=== PATIENT | female | born 1965 | race Hispanic/Latino ===

== ENCOUNTER → 2021-10-31 | Outpatient (CLI) | payer OTHER | END | disposition home or self-care (01) | LOC: RAH 16:06 | PROVIDERS: ATTEND Family Medicine | DX: Z02.71 Encounter for disability determination (principal); M47.816 Spondylosis without myelopathy or radiculopathy, lumbar region; M17.0 Bilateral primary osteoarthritis of knee | CPT/HCPCS: 71046; 72100; 73521 ==

== ENCOUNTER 2024-01-29 07:21 | Observation (INO) | payer MEDICARE ==
[2024-01-25 13:26] LABS: BASOPHILS # (AUTO) 0.05 K/uL (0.00-0.20); BASOPHILS % (AUTO) 0.5 % (0.0-5.0); EOSINOPHILS # (AUTO) 0.19 K/uL (0.00-0.70); EOSINOPHILS % (AUTO) 1.9 % (0.0-8.0); HEMATOCRIT 44.1 % (36-48); IMMATURE GRANULOCYTE ABSOLUTE 0.03 K/uL (0-1); LYMPHOCYTES # (AUTO) 2.7 K/uL (1.0-4.8); LYMPHOCYTES % (AUTO) 27.3 % (21.0-51.0); MEAN CORPUSCULAR HEMOGLOBIN 29.1 pg (27.0-33.0); MEAN CORPUSCULAR HGB CONC 32.9 g/dL (32.0-36.0); MEAN CORPUSCULAR VOLUME 88.4 fL (79-99); MONOCYTES # (AUTO) 0.5 K/uL (0.1-1.0); MONOCYTES % (AUTO) 5.2 % (3.0-13.0); NEUTROPHILS # (AUTO) 6.4 K/uL (1.8-7.7); NEUTROPHILS % (AUTO) 64.8 % (40.0-77.0); PLATELET COUNT (AUTO) 231 K/uL (130-400); RED BLOOD CELL COUNT(AUTO) 4.99 MIL/uL (4.00-5.50); RED CELL DISTRIBUTION WIDTH 13.4 % (11.0-15.5); WHITE BLOOD COUNT (AUTO) 9.9 K/uL (4.8-10.8)
[2024-01-25 13:37] LABS: INR 1.09 (0.85-1.15); PROTHROMBIN TIME 11.7 SEC (9.6-11.6)
[2024-01-25 13:39] LABS: PARTIAL THROMBOPLASTIN TIME 28.3 SEC (26.3-35.5)
[2024-01-25 13:41] LABS: ADD UA MICROSCOPIC YES; APPEARANCE,URINE CLOUDY (CLEAR); BILIRUBIN,URINE NEGATIVE (NEGATIVE); COLOR,URINE YELLOW (YELLOW); GLUCOSE, URINE (UA) NEGATIVE (NEGATIVE); KETONES,URINE 5 mg/dL (NEGATIVE); LEUKOCYTE ESTERASE ,URINE 75 Leu/uL (NEGATIVE); NITRATE,URINE NEGATIVE (NEGATIVE); OCCULT BLOOD,URINE NEGATIVE (NEGATIVE); PROTEIN,URINE 30 mg/dL (NEGATIVE)
[2024-01-25 13:46] LABS: BACTERIA,URINE FEW /HPF (None Seen); MUCUS,URINE MANY LPF (None Seen); SQUAMOUS EPITHELIAL CELL,UR FEW /HPF (0-2)
[2024-01-25 14:04] VITALS: BP 133/91; PULSE 81; RESP 16; TEMP 97.8
[2024-01-29] VITALS (26 sets, daily range): BP systolic 97–147; BP diastolic 41–83; PULSE 71–93; RESP 13–24; TEMP 97.3–98.8; O2SAT 97
[~2024-01-29] VITALS: Ht 152.4 cm; Wt 103.8 kg
[~2024-01-29 07:21] MED LIST: AMLO-258 PO; LISI20TA24 PO; NAPR-1023 PO; OMEP40CA21 PO; ROSU20TA98 PO; TIRZ2.5P SQ
[2024-01-29] MEDS: 0.9%NACL 1000ML 1,000 ML IV ONE (07:32)
[2024-01-29] MEDS: ceFAZolin SODIUM 2 GM VIAL ONE (07:32)
[2024-01-29] MEDS ORDERED: ceFAZolin SODIUM 1 GM VIAL ONE (08:36)
[2024-01-29] MEDS ORDERED: morPHINE PF 100MG/10ML AMP IV ONE (08:36)
[2024-01-29] MEDS ORDERED: TRANEXAMIC ACID 1000MG/10ML ONE (08:36)
[2024-01-29] MEDS ORDERED: proPOFol 10 MG/ML 20ML VIAL IV ONE (08:55)
[2024-01-29] MEDS ORDERED: SUCCINYLCHOLINE CHLORIDE 20 MG/ML 10 ML VIAL ONE (08:55)
[2024-01-29] MEDS ORDERED: rocuRONium bROMide 10MG/1ML 5ML VL ONE ×2 (08:56→10:36)
[2024-01-29] MEDS ORDERED: FENTanyl CITRate PF 50 MCG/1 ML 2ML VIAL ONE (08:56)
[2024-01-29] MEDS ORDERED: MIDAZOLAM HCL 1 MG/ML 2ML VIAL ONE (08:56)
[2024-01-29] MEDS: TRANEXAMIC ACID 1000MG/10ML IV ONE (09:45)
[2024-01-29] MEDS: VANCOMYCIN 500MG VIAL IJ ONE (11:50)
[2024-01-29] MEDS ORDERED: OXYcodONE HCL 5 MG TAB PO PRN (12:30)
[2024-01-29] MEDS ORDERED: DiphenhydrAMINE HCL 50 MG/ML VIAL IVP PRN (12:30)
[2024-01-29] MEDS ORDERED: FERROUS FUMARATE 324 MG TABLET PO PRN (12:30)
[2024-01-29] MEDS ORDERED: TEMAZepam 15 MG CAPSULE PO PRN (12:30)
[2024-01-29] MEDS ORDERED: CALCIUM CARB 500MG PO PRN (12:30)
[2024-01-29] MEDS ORDERED: PoTASSium chloRIDE 20MEQ ER 20 MEQ ERTAB PO PRN (12:30)
[2024-01-29] MEDS ORDERED: PoTASSium chloRIDE 20MEQ/100ML 100 ML IV PRN (12:30)
[2024-01-29] MEDS ORDERED: PoTASSium chl 10% ELIXIR 20MEQ 20 MEQ/15 ML UDCUP PO PRN (12:30)
[2024-01-29] MEDS ORDERED: ondanSETRON 4MG INJ IVP PRN (12:30)
[2024-01-29] MEDS ORDERED: NEOSTIGMINE METHYLSULFATE 1MG/ML IV ONE (12:42)
[2024-01-29] MEDS ORDERED: MEPERIDINE-PF 25 MG/ML SYG ONE (12:51)
[2024-01-29] MEDS: IpraTROPium/alBUTERol SULFATE 3 ML SOLUTION IH ONE ×2 (13:26→13:34)
[2024-01-29] MEDS: MEPERIDINE-PF 25 MG/ML SYG ONE ×2 (13:29→13:30)
[2024-01-29] MEDS: MIDAZOLAM HCL 1 MG/ML 2ML VIAL ONE (13:30)
[2024-01-29] MEDS: SUGAMMADEX SODIUM 200 MG/2 ML VIAL IV ONE (13:30)
[2024-01-29] MEDS: ketOROlac 15MG/ML VIAL (15MG/ML) IV PRN (14:10)
[2024-01-29] MEDS: OXYcodONE HCL 5 MG TAB PO PRN (14:48)
[2024-01-29] MEDS: INSULIN humuLIN R 100 UNIT/ML 3ML SQ SCH (16:30)
[2024-01-29] MEDS: ceFAZolin SODIUM 2 GM VIAL IVPB SCH (18:30)
[2024-01-29] MEDS: 0.9%NACL 1000ML 1,000 ML IV SCH (18:31)
[2024-01-29] MEDS: ASPIRIN 81 MG EC TAB PO SCH (20:02)
[2024-01-29] MEDS: FAMOTIDINE 20MG TAB PO SCH (20:03)
[2024-01-29] MEDS: CeleCOXib 200 MG CAP PO SCH (20:03)
[2024-01-30] VITALS (8 sets, daily range): BP systolic 113–161; BP diastolic 54–82; PULSE 62–95; RESP 18–24; TEMP 98–99.4; O2SAT 96–97
[2024-01-30 05:05] LABS: HEMATOCRIT 35.1 % (36-48); MEAN CORPUSCULAR HEMOGLOBIN 28.6 pg (27.0-33.0); MEAN CORPUSCULAR HGB CONC 32.2 g/dL (32.0-36.0); MEAN CORPUSCULAR VOLUME 88.9 fL (79-99); RED BLOOD CELL COUNT(AUTO) 3.95 MIL/uL (4.00-5.50); RED CELL DISTRIBUTION WIDTH 13.4 % (11.0-15.5); WHITE BLOOD COUNT (AUTO) 7.1 K/uL (4.8-10.8)
[2024-01-30 05:10] LABS: CREATININE 0.8 mg/dL (0.5-1.0); POTASSIUM 4.4 mmol/L (3.5-5.1)
[2024-01-30] MEDS: Rosuvastatin Calcium 20 MG PO SCH (09:00)
[2024-01-30] MEDS: amLODIPine 5 MG TAB PO SCH (09:03)
[2024-01-30] MEDS: polyETHYLene GLYCol 3350 17 GM POWD.PACK PO SCH (09:03)
[2024-01-30] MEDS: PANTOPrazole 40 MG TAB DR PO SCH (09:03)
[2024-01-30] MEDS: LISINOPRIL 20 MG TABLET PO SCH (09:03)
[2024-01-30] MEDS: hydroMORPHone 1 MG INJ IVP PRN (10:55)
[2024-01-30] MEDS: LACTULOSE 20 GM/30 ML UDCUP PO PRN (12:56)
[2024-01-30] MEDS ORDERED: BisaCODYL 10 MG SUPP.RECT RC PRN (13:00)
[2024-01-30] MEDS: BisaCODYL 10 MG SUPP.RECT RC ONE (13:23)
[2024-01-31] VITALS (8 sets, daily range): BP systolic 93–139; BP diastolic 50–75; PULSE 76–91; RESP 17–20; TEMP 98.2–100.2; O2SAT 95–98
[2024-01-31] MEDS: traMADol HCL 50 MG TABLET PO PRN (12:38)
[2024-01-31] MEDS ORDERED: AEC81 PO (14:27)
[2024-01-31] MEDS ORDERED: OXYC5 PO (14:27)
[2024-01-31] MEDS: ALBUTEROL 0.083% 2.5 MG/3 ML INH IH STA (15:01)
[2024-01-31] MEDS: ALBUTEROL 0.083% 2.5 MG/3 ML INH IH ONE (15:01)
[2024-02-01] MEDS ORDERED: BisaCODYL 10 MG SUPP.RECT RC PRN (12:30)
== END 2024-01-31 18:00 | disposition home or self-care (01) ==
LOC: DAH 07:21 → DAHIP 07:22 → 4CH 13:55
PROVIDERS: ADMIT Orthopaedic Surgery; ATTEND Orthopaedic Surgery
DX: M17.11 Unilateral primary osteoarthritis, right knee (principal); E78.00 Pure hypercholesterolemia, unspecified; E11.9 Type 2 diabetes mellitus without complications; M06.9 Rheumatoid arthritis, unspecified; I10 Essential (primary) hypertension; Z79.899 Other long term (current) drug therapy; Z98.890 Other specified postprocedural states
CPT/HCPCS: 85025; 85610; 85730; 87086; 81001; 36415 ×2; 87641; 27447; 64447; 96376 ×3; 96365; 96375 ×2; 82948 ×10; 88311; 88305; 97161; 97530 ×7; 94640 ×2; 96366; 80048; 85027; 97116 ×4; J1815; G0378 ×50; A4223 ×2; A4663; J7120; J3010; J0690 ×6; J3490 ×5; J0330; J7030; J2250 ×2; J2704; J2274; J2710; J2175 ×3; J1885 ×6; J3370; A9272; A4649 ×3; A4930 ×2; C1713; C1776; A5120; A4215; A4222; A4221; A4216; J1170 ×4; J2270